=== PATIENT | male | born 1990 | race Caucasian/White ===

== ENCOUNTER 2017-09-11 17:58 | Emergency (ER) | payer OTHER ==
[2017-09-11 19:04] VITALS: BP 153/94
[2017-09-11] MEDS ORDERED: Naproxen TAB* 250 MG PO ONE (19:56)
--- NOTE | 2017-09-11 20:45 | RAD ---
Indication: Sudden RIGHT shoulder pain with grinding sensation. Comparison: No relevant prior exams available on the [facility] PACS for comparison. Technique: Internal and external rotation AP and scapular Y views RIGHT shoulder. AP views of the bilateral acromioclavicular joints without and with weights. Report: Normal alignment at the acromioclavicular joints without and with weights. Negative for clavicle fracture. No significant arthropathic change evident at the acromioclavicular joints. Normal RIGHT glenohumeral joint alignment and preserved glenohumeral joint space. Negative for fracture. Negative for stigmata of calcific tendinopathy. Unremarkable soft tissue contours. IMPRESSION: Negative radiographic exam of the bilateral acromioclavicular joints without and with weights and routine radiographic exam of the RIGHT shoulder.
--- NOTE | 2017-09-11 20:45 | RAD ---
Indication: Sudden RIGHT shoulder pain with grinding sensation. Comparison: No relevant prior exams available on the [facility] [place] for comparison. Technique: Internal and external rotation AP and scapular Y views RIGHT shoulder. AP views of the bilateral acromioclavicular joints without and with weights. Report: Normal alignment at the acromioclavicular joints without and with weights. Negative for clavicle fracture. No significant arthropathic change evident at the acromioclavicular joints. Normal RIGHT glenohumeral joint alignment and preserved glenohumeral joint space. Negative for fracture. Negative for stigmata of calcific tendinopathy. Unremarkable soft tissue contours. IMPRESSION: Negative radiographic exam of the bilateral acromioclavicular joints without and with weights and routine radiographic exam of the RIGHT shoulder.
--- NOTE | 2017-09-11 21:00 | UC ---
Shoulder Pain HPI - HPI Summary HPI Summary: 27 yo gentleman presents for evaluation and management of R shoulder pain. Denies recent injury. Used to do heavy lifting, most recently approx 2 yrs ago. Woke up this morning with pain and "grinding" sensation. No p/d/w. No neck or back pain. No fever /chills. No sob / cp. No GI issues. - History of Current Complaint Chief Complaint: UCUpperExtremity Stated Complaint: RIGHT SHOULDER PAIN Time Seen by Provider: 09/11/17 19:48 Hx Obtained From: Patient Pain Intensity: 7 - Allergies/Home Medications Allergies/Adverse Reactions: Allergies Allergy/AdvReac Type Severity Reaction Status Date / Time No Known Allergies Allergy Verified 09/11/17 19:04 Home Medications: Home Medications Albuterol HFA INHALER* [Ventolin HFA Inhaler*] 2 puff INH Q4H PRN 09/11/17 [ History Confirmed 09/11/17] Divalproex ER TAB(*) [Depakote ER TAB(*)] 250 - 500 mg PO BID 09/11/17 [History Confirmed 09/11/17] Sleeping Pill 1 dose PO BEDTIME 09/11/17 [History Confirmed 09/11/17] PMH/Surg Hx/FS Hx/Imm Hx Previously Healthy: Yes - Surgical History Surgical History: None - Family History Known Family History: Positive: Unknown - Social History Occupation: Unemployed Alcohol Use: None Substance Use Type: None Smoking Status (MU): Light Every Day Tobacco Smoker Amount Used/How Often: 2 cigs per day Review of Systems Constitutional: Negative Skin: Negative Eyes: Negative ENT: Negative Respiratory: Negative Cardiovascular: Negative Gastrointestinal: Negative Genitourinary: Negative Motor: Other - see hpi Neurovascular: Negative Musculoskeletal: Arthralgia Neurological: Negative Psychological: Negative Is Patient Immunocompromised?: No All Other Systems Reviewed And Are Negative: Yes Physical Exam Triage Information Reviewed: Yes Appearance: Well-Appearing, Well-Nourished Vital Signs: Initial Vital Signs Temp 97.7 F 09/11/17 19:00 Pulse 75 09/11/17 19:00 Resp 14 09/11/17 19:00 BP 153/94 09/11/17 19:00 Pulse Ox 97 09/11/17 19:00 Vital Signs Reviewed: Yes Eye Exam: Normal - grossly normal ENT Exam: Normal - grossly normal Neck exam: Normal Neck: Positive: Supple, Nontender, No Lymphadenopathy Respiratory Exam: Normal Respiratory: Positive: Chest non-tender, Lungs clear, Normal breath sounds, No respiratory distress, No accessory muscle use Cardiovascular Exam: Normal Cardiovascular: Positive: RRR, No Murmur, Pulses Normal, Brisk Capillary Refill Abdominal Exam: Normal Abdomen Description: Positive: Nontender Musculoskeletal Exam: Other - R shoulder + mild crepitus ant and post shoulder with movement. Able to move in all directions, but limited active abduction ( up to approx 110deg). Flexes to approx 150deg. Able to rotate post, but painful. + Ax n sensation present LT. Distal pulses good, good cap refill. No elbow or wrist pain. Neurological Exam: Normal Psychological Exam: Normal - conversing easily and appropriately. NAD. Skin Exam: Normal - no ecchymosis, nor visible / reported rash. Shoulder Course/Dx - Course Course Of Treatment: Reviewed xray reports with pt (R shoulder, AC R). NAD ( see meditech). Sling applied here by RN. Rx naproxen. Recommend f/u with Orthopedic surgeon, referral Dr. Solis (referral rn long term care today). Consider tendinopathy, consider inflammatory process not visible on plain xray. May need future further imaging. Sling as needed for comfort. Questions as posed answered to the best of my ability. - Differential Dx/Diagnosis Provider Diagnoses: R shoulder arthralgia Discharge - Sign-Out/Discharge Documenting (check all that apply): Discharge/Admit/Transfer - Discharge Plan Condition: Stable Disposition: HOME Prescriptions: Naproxen [Naproxen 500 mg tab] 500 mg PO Q12H PRN #30 tablet PRN Reason: Pain Patient Education Materials: Arthralgia (ED) Referrals: Bella Gonzalez MD [Primary Care Provider] - Guille Solis MD [Medical Doctor] - Additional Instructions: Sling as needed, especially during the day, for comfort. Recommend at least 7 days, if possible. Follow up with Orthopedic surgeon, 1-2 weeks (referral to Dr. Solis). Seek medical attention for worse or new problems. - Billing Disposition and Condition Condition: STABLE Disposition: HOME
== END 2017-09-11 21:03 | disposition home or self-care (01) ==
LOC: UCCORT 17:58
DX: M25.511 Pain in right shoulder (principal); F17.200 Nicotine dependence, unspecified, uncomplicated
CPT/HCPCS: 73050; 99203; A9270-GY; G0463